=== PATIENT | male | born 1980 | race Caucasian/White ===

== ENCOUNTER 2018-06-24 08:06 | Observation (INO) | payer BC ==
[~2018-06-24] VITALS: Ht 172.7 cm; Wt 85.5 kg
[2018-06-24 08:34] VITALS: BP 121/75
[2018-06-24 08:39] LABS: BASOPHILS 0.1 % (0-2); EOSINOPHILS 1.8 % (0-7); HEMATOCRIT 44.1 % (42.0-54.0); HEMOGLOBIN 15.1 g/dL (13.5-17.5); IMMATURE GRANULOCYTES 0.4 % (0-5); LYMPHOCYTES 23.7 % (15-50); MCH 28.7 pg (26.0-34.0); MCHC 34.2 g/dL (31.0-37.0); MCV 83.7 fL (80.0-100.0); MEAN PLATELET VOLUME 11.2 fL (7.4-10.4); MONOCYTES 8.5 % (2-11); NEUTROPHILS 65.5 % (40-80); PLATELET COUNT 201 10x3/uL (130-400); RBC 5.27 10x6/uL (4.20-6.10); RDW 15.1 % (11.5-14.5); WBC 13.5 10x3/uL (4.8-10.8)
[2018-06-24 08:47] LABS: APTT 27.7 SECONDS (22.8-39.4); INR 0.98 (0.85-1.17); PROTIME 12.5 SECONDS (11.6-15.0)
[2018-06-24 08:53] LABS: ALBUMIN 3.6 g/dL (3.4-5.0); ALKALINE PHOSPHATASE 81 U/L (46-116); ALT (SGPT) 32 U/L (10-68); BILIRUBIN - TOTAL 0.17 mg/dL (0.2-1.3); CALC OSMOLALITY 284 mosm/kg (275-300); CALCIUM 8.4 mg/dL (8.5-10.1); CARBON DIOXIDE 28.9 mmol/L (21.0-32.0); CHLORIDE - SERUM 106 mmol/L (98-107); CREATININE - SERUM 1.1 mg/dL (0.6-1.3); GLUCOSE 103 mg/dL (74-106); POTASSIUM - SERUM 4.3 mmol/L (3.5-5.1); PROTEIN - SERUM 7.2 g/dL (6.4-8.2); SODIUM 142 mmol/L (136-145); UREA NITROGEN 18 mg/dL (7-18); eGFR NON AFRICAN AMERICAN 81 mL/min (90-120)
[2018-06-24 09:00] LABS: UDS - AMPHET NEGATIVE QUAL (NEGATIVE); UDS - BARB NEGATIVE QUAL (NEGATIVE); UDS - BENZO NEGATIVE QUAL (NEGATIVE); UDS - COCAINE NEGATIVE QUAL (NEGATIVE); UDS - OPIATE NEGATIVE QUAL (NEGATIVE); UDS - PCP NEGATIVE QUAL (NEGATIVE); UDS - THC NEGATIVE QUAL (NEGATIVE)
[2018-06-24 09:04] LABS: CKMB 0.6 U/L (0.0-3.6); CREATINE KINASE 97 UL (21-232); MAGNESIUM - SERUM 2.1 mg/dL (1.8-2.4); TROPONIN-I < 0.017 ng/mL (0.000-0.060)
--- NOTE | 2018-06-24 11:02 | NUR ---
PATIENT ARRIVED TO UNIT VIA WHEELCHAIR FROM ED AND ADMITTED TO ROOM 2118. PATIENT ALERT, ORIENTED, AND AMBULATORY. PATIENT SPOUSE AT BEDSIDE. NS INFUSING AT 100ML/HR TO RIGHT AC, 20 GAUGE. PATIENT COMPLAINS OF CHEST PAIN AT THIS TIME 12/14. MORPHINE AND ZOFRAN ADMINISTERED. PATIENT REQUESTING HIS NICOTINE PATCH AT THIS TIME.
[2018-06-24] MEDS ORDERED: RANITIDINE HCL150 M1 PO (11:43)
[2018-06-24] MEDS ORDERED: CLARITIN 10 MG10 MG PO (11:43)
--- NOTE | 2018-06-24 11:53 | NUR ---
EKG COMPLETE AND PLACED ON THE CHART. PATIENT WANTS TO KNOW WHEN HE CAN EAT AND DRINK BECAUSE HE IS STARVING AND HAS NOT EATEN TODAY. PATIENT STILL AWARE OF HIS NPO STATUS.
[2018-06-24 12:13] VITALS: BP 117/80; Ht 172.7 cm; Wt 85.5 kg
--- NOTE | 2018-06-24 13:17 | NUR ---
PATIENT RESTING IN BED. PATIENT OVERNIGHT HOUSEPERSON LIGHT FOR [facility] SINGLE INCIDENTS. PATIENT SPOUSE NOW RETURNED TO BEDSIDE WITH PATIENT. NO DISTRESS. IV FLUIDS CONTINUE INFUSING ORDERED.
--- NOTE | 2018-06-24 15:00 | NUR ---
RESTIN IN BED. ASSISTED TO CONNECT TO WIFI. NO DISTRESS. CALL LIGHT WITHIN REACH.
[2018-06-24 17:23] VITALS: BP 115/76
--- NOTE | 2018-06-24 18:08 | NUR ---
RESTING IN BED. SR ON TELEMETRY. NO DISTRESS.
[2018-06-24 20:00] VITALS: BP 128/82
--- NOTE | 2018-06-24 20:00 | NUR ---
INITIAL ROUNDS AND ASSESSMENT COMPLETED. PT VISITING WITH GIRLFRIEND. SR PER TELEMETRY. NS @ 50ML/HR INFUSING TO RIGHT A/C. PT REQUESTING TO KNOW IF HE WILL BE ABLE TO HAVE MORE PAIN MEDICATION FOR HIS CHEST DISCOMFORT. INSTRUCTED PT ON MORPHINE 4MG IV AVAILABLE EVERY 4 HOURS NEEDED. PT REQUESTING DOSE NOW FOR CHEST DISCOMFORT.
--- NOTE | 2018-06-24 21:10 | NUR ---
PT WAS MEDICATED WITH MORHPINE 4MG SIVP AT 2019 AND IS NOW RESTING WITH NO FURTHER C/O CHEST PRESSURE/DISCOMFORT.
[2018-06-25] VITALS: BP 121/75
[2018-06-25 01:57] LABS: BASOPHILS 0.2 % (0-2); HEMATOCRIT 43.7 % (42.0-54.0); HEMOGLOBIN 14.8 g/dL (13.5-17.5); IMMATURE GRANULOCYTES 0.3 % (0-5); LYMPHOCYTES 27.4 % (15-50); MCH 28.2 pg (26.0-34.0); MCHC 33.9 g/dL (31.0-37.0); MCV 83.4 fL (80.0-100.0); MEAN PLATELET VOLUME 11.2 fL (7.4-10.4); MONOCYTES 8.1 % (2-11); PLATELET COUNT 176 10x3/uL (130-400); RBC 5.24 10x6/uL (4.20-6.10)
[2018-06-25 02:12] LABS: CALC OSMOLALITY 286 mosm/kg (275-300); CALCIUM 8.8 mg/dL (8.5-10.1); CARBON DIOXIDE 32.1 mmol/L (21.0-32.0); CHLORIDE - SERUM 105 mmol/L (98-107); GLUCOSE 114 mg/dL (74-106); POTASSIUM - SERUM 4.6 mmol/L (3.5-5.1); SODIUM 143 mmol/L (136-145); TROPONIN-I < 0.017 ng/mL (0.000-0.060); UREA NITROGEN 14 mg/dL (7-18); eGFR NON AFRICAN AMERICAN 90 mL/min (90-120)
--- NOTE | 2018-06-25 02:12 | NUR ---
PT AWAKE WITH C/O LEG CRAMPS AND CHEST PRESSURE. REQUESTED MORPHINE 4MG SIVP ADMINISTERED. C/O ROOM BEING COLD, APPLIED A WARM BLANKET TO LOWER LEGS AND ADJUSTED ROOM TEMP.
[2018-06-25 04:00] VITALS: BP 118/66
--- NOTE | 2018-06-25 07:30 | NUR ---
ASSESSMENT COMPLETED. ALERT AND ORIENTED. TELEMERTY SHOWS SR. IV TO RIGHT AC WITH NS AT 50. UP AB NANCY.CALL LIGHT IN REACH WITH SR UP
[2018-06-25 09:54] VITALS: BP 124/72
[2018-06-25] MEDS ORDERED: SULFAMETHOXAZOL1 TA3 PO (11:46)
--- NOTE | 2018-06-25 11:50 | NUR ---
PT DCD. IV DCD WITH TIP INTACT. INSTRUCTIONS GIVEN. TO PRIVATE CAR PER WHEELCHAIR.
== END 2018-06-25 12:00 | disposition home or self-care (01) ==
LOC: D.ER 08:06 → OBSVTIME 09:52 → D.EDHOLD 09:52 → D.M2 10:36
PROVIDERS: Family Medicine; ADMIT Internal Medicine Cardiovascular Disease; ATTEND Internal Medicine Cardiovascular Disease
DX: I25.110 Atherosclerotic heart disease of native coronary artery with unstable angina pectoris (principal); E11.9 Type 2 diabetes mellitus without complications; I10 Essential (primary) hypertension